=== PATIENT | male | born 1985 | race Caucasian/White ===

== ENCOUNTER 2020-03-19 22:53 | Inpatient (IN) | payer SELFPAY ==
[~2020-03-19] VITALS: Ht 177.8 cm; Wt 104.3 kg
[2020-03-19 23:26] LABS: BASOPHIL % 0 % (0-2); PLATELET COUNT 126 x10^3mcL (130-400)
[2020-03-19 23:43] LABS: CALCIUM 8.4 mg/dL (8.5-10.1); CHLORIDE SERUM 94 mmol/L (98-107); CREATININE SERUM 1.2 mg/dL (0.7-1.3); GFR1 > 60 mL/min; GLUCOSE SERUM 118 mg/dL (74-106); POTASSIUM SERUM 3.1 mmol/L (3.5-5.1); SODIUM SERUM 131 mmol/L (136-145)
[2020-03-19 23:48] LABS: ALBUMIN 3.3 g/dL (3.4-5.0); ALKALINE PHOSPHATASE 67 U/L (46-116); ALT/SGPT 82 U/L (16-63); AST/SGOT 68 U/L (15-37); BILIRUBIN TOTAL 0.8 mg/dL (0.20-1.00); C REACTIVE PROTEIN 32.3 mg/dL (<=0.9); LACTIC DEHYDROGENASE (LDH) 558 U/L (100-190); TOTAL PROTEIN, SERUM 7.6 g/dL (6.4-8.2)
[2020-03-20] VITALS (7 sets, daily range): BP systolic 114–127; BP diastolic 69–78
[2020-03-20 01:25] LABS: UA SPECIFIC GRAVITY 1.025 (1.005-1.035); urine erythrocyte 3+ (NEGATIVE)
[2020-03-20 01:33] LABS: microscopic required? YES
[2020-03-20 01:37] LABS: AMPHETAMINE QUAL UR NONE DETECTED (See below)
[2020-03-20 04:06] LABS: CHOLESTEROL/HDL RATIO 3.2
[2020-03-20 08:31] LABS: BASOPHIL % 0.1 % (0-2); PLATELET COUNT 144 x10^3mcL (130-400); RED CELL DISTRIBUTION WIDTH 12.1 % (11.5-14.5)
[2020-03-20 09:12] LABS: CALCIUM 8.9 mg/dL (8.5-10.1); CARBON DIOXIDE 31.7 mmol/L (21-32); CHLORIDE SERUM 97 mmol/L (98-107); CREATININE SERUM 1.1 mg/dL (0.7-1.3); GFR1 > 60 mL/min; GLUCOSE SERUM 100 mg/dL (74-106); POTASSIUM SERUM 3.7 mmol/L (3.5-5.1); SODIUM SERUM 135 mmol/L (136-145)
[2020-03-21 06:05] VITALS: BP 126/74
[2020-03-21 06:33] LABS: PLATELET COUNT 131 x10^3mcL (130-400); RED CELL DISTRIBUTION WIDTH 12.2 % (11.5-14.5)
[2020-03-21 06:49] LABS: BASOPHIL % 0 % (0-2)
[2020-03-21 07:02] LABS: ALKALINE PHOSPHATASE 58 U/L (46-116); ALT/SGPT 75 U/L (16-63); AST/SGOT 64 U/L (15-37); BILIRUBIN TOTAL 0.5 mg/dL (0.20-1.00); CALCIUM 8.5 mg/dL (8.5-10.1); CARBON DIOXIDE 32.3 mmol/L (21-32); CHLORIDE SERUM 98 mmol/L (98-107); CREATININE SERUM 1.1 mg/dL (0.7-1.3); GFR1 > 60 mL/min; GLUCOSE SERUM 117 mg/dL (74-106); MAGNESIUM 2.9 mg/dL (1.8-2.4); PHOSPHOROUS 3.3 mg/dL (2.5-4.9); POTASSIUM SERUM 3.9 mmol/L (3.5-5.1); SODIUM SERUM 135 mmol/L (136-145); TOTAL PROTEIN, SERUM 7.1 g/dL (6.4-8.2)
[2020-03-21 07:13] LABS: ALBUMIN 2.8 g/dL (3.4-5.0); C REACTIVE PROTEIN 17.4 mg/dL (<=0.9)
[2020-03-21 08:41] VITALS: BP 113/78
[2020-03-21 12:30] VITALS: BP 108/68
[2020-03-21 16:30] VITALS: BP 125/75
[2020-03-21 20:48] VITALS: BP 123/71
[2020-03-22 05:50] VITALS: BP 105/61
[2020-03-22 06:46] LABS: BASOPHIL % 0.1 % (0-2); PLATELET COUNT 147 x10^3mcL (130-400)
[2020-03-22 06:50] LABS: ALKALINE PHOSPHATASE 65 U/L (46-116); ALT/SGPT 98 U/L (16-63); AST/SGOT 81 U/L (15-37); BILIRUBIN TOTAL 0.46 mg/dL (0.20-1.00); C REACTIVE PROTEIN 8.5 mg/dL (<=0.9); CALCIUM 8.3 mg/dL (8.5-10.1); CHLORIDE SERUM 96 mmol/L (98-107); CREATININE SERUM 1.1 mg/dL (0.7-1.3); GFR1 > 60 mL/min; GLUCOSE SERUM 125 mg/dL (74-106); PHOSPHOROUS 4.1 mg/dL (2.5-4.9); SODIUM SERUM 133 mmol/L (136-145); TOTAL PROTEIN, SERUM 6.7 g/dL (6.4-8.2)
[2020-03-22 07:03] LABS: ALBUMIN 2.6 g/dL (3.4-5.0)
[2020-03-22 08:28] VITALS: BP 113/71
[2020-03-22 13:10] VITALS: BP 114/64
[2020-03-22 16:11] VITALS: BP 112/70
[2020-03-22 19:30] VITALS: BP 118/73
[2020-03-23 06:07] VITALS: BP 120/71
[2020-03-23 07:08] LABS: BASOPHIL % 0 % (0-2); PLATELET COUNT 166 x10^3mcL (130-400); RED CELL DISTRIBUTION WIDTH 12.2 % (11.5-14.5)
[2020-03-23 07:13] LABS: ALKALINE PHOSPHATASE 60 U/L (46-116); ALT/SGPT 132 U/L (16-63); AST/SGOT 64 U/L (15-37); BILIRUBIN TOTAL 0.4 mg/dL (0.20-1.00); C REACTIVE PROTEIN 3.6 mg/dL (<=0.9); CALCIUM 8.1 mg/dL (8.5-10.1); CARBON DIOXIDE 33.6 mmol/L (21-32); CHLORIDE SERUM 98 mmol/L (98-107); CREATININE SERUM 0.8 mg/dL (0.7-1.3); GFR1 > 60 mL/min; GLUCOSE SERUM 109 mg/dL (74-106); MAGNESIUM 2.7 mg/dL (1.8-2.4); PHOSPHOROUS 3.4 mg/dL (2.5-4.9); POTASSIUM SERUM 3.6 mmol/L (3.5-5.1); SODIUM SERUM 135 mmol/L (136-145); TOTAL PROTEIN, SERUM 6.5 g/dL (6.4-8.2)
[2020-03-23 07:15] LABS: ALBUMIN 2.6 g/dL (3.4-5.0)
[2020-03-23 09:18] VITALS: BP 119/76
[2020-03-23 12:48] VITALS: BP 113/70
[2020-03-23 17:02] VITALS: BP 128/81
[2020-03-23 19:10] VITALS: BP 106/71
[2020-03-24 06:26] VITALS: BP 121/80
[2020-03-24 07:38] LABS: BASOPHIL % 0.1 % (0-2); PLATELET COUNT 188 x10^3mcL (130-400); RED CELL DISTRIBUTION WIDTH 12.2 % (11.5-14.5)
[2020-03-24 07:52] LABS: ALKALINE PHOSPHATASE 62 U/L (46-116); ALT/SGPT 116 U/L (16-63); AST/SGOT 37 U/L (15-37); BILIRUBIN TOTAL 0.47 mg/dL (0.20-1.00); C REACTIVE PROTEIN 5.6 mg/dL (<=0.9); CALCIUM 8.3 mg/dL (8.5-10.1); CARBON DIOXIDE 31.6 mmol/L (21-32); CHLORIDE SERUM 98 mmol/L (98-107); CREATININE SERUM 0.9 mg/dL (0.7-1.3); GFR1 > 60 mL/min; GLUCOSE SERUM 99 mg/dL (74-106); MAGNESIUM 2.4 mg/dL (1.8-2.4); POTASSIUM SERUM 3.8 mmol/L (3.5-5.1); SODIUM SERUM 135 mmol/L (136-145); TOTAL PROTEIN, SERUM 6.6 g/dL (6.4-8.2)
[2020-03-24 08:01] LABS: ALBUMIN 2.6 g/dL (3.4-5.0)
[2020-03-24 09:00] VITALS: BP 121/77
[2020-03-24 12:50] VITALS: BP 116/69
[2020-03-24 16:45] VITALS: BP 117/73
[2020-03-25 00:14] VITALS: BP 108/66
[2020-03-25 04:00] VITALS: BP 107/52
[2020-03-25 07:20] LABS: ALKALINE PHOSPHATASE 77 U/L (46-116); ALT/SGPT 135 U/L (16-63); AST/SGOT 36 U/L (15-37); BILIRUBIN TOTAL 0.41 mg/dL (0.20-1.00); C REACTIVE PROTEIN 11.1 mg/dL (<=0.9); CALCIUM 8.7 mg/dL (8.5-10.1); CARBON DIOXIDE 30.8 mmol/L (21-32); CHLORIDE SERUM 99 mmol/L (98-107); CREATININE SERUM 0.9 mg/dL (0.7-1.3); GFR1 > 60 mL/min; GLUCOSE SERUM 105 mg/dL (74-106); MAGNESIUM 2.6 mg/dL (1.8-2.4); PHOSPHOROUS 3.5 mg/dL (2.5-4.9); POTASSIUM SERUM 4.1 mmol/L (3.5-5.1); SODIUM SERUM 135 mmol/L (136-145); TOTAL PROTEIN, SERUM 6.7 g/dL (6.4-8.2)
[2020-03-25 07:21] LABS: BASOPHIL % 0.2 % (0-2); PLATELET COUNT 211 x10^3mcL (130-400); RED CELL DISTRIBUTION WIDTH 12.2 % (11.5-14.5)
[2020-03-25 07:30] LABS: ALBUMIN 2.5 g/dL (3.4-5.0)
[2020-03-25 09:04] VITALS: BP 107/58
[2020-03-25 13:18] VITALS: BP 120/65
[2020-03-25 17:05] VITALS: BP 112/81
[2020-03-25 17:37] LABS: BILIRUBIN DIRECT 0.1 mg/dL (0.0-0.2); BILIRUBIN TOTAL 0.4 mg/dL (0.20-1.00); TOTAL PROTEIN, SERUM 6.7 g/dL (6.4-8.2)
[2020-03-25 17:39] LABS: ALBUMIN 2.6 g/dL (3.4-5.0)
[2020-03-25 22:09] VITALS: BP 120/68
[2020-03-26 05:56] VITALS: BP 96/59
[2020-03-26 07:57] LABS: BASOPHIL % 0.1 % (0-2); PLATELET COUNT 257 x10^3mcL (130-400)
[2020-03-26 08:04] LABS: C REACTIVE PROTEIN 5.3 mg/dL (<=0.9); CALCIUM 8.7 mg/dL (8.5-10.1); CARBON DIOXIDE 32.4 mmol/L (21-32); CHLORIDE SERUM 98 mmol/L (98-107); CREATININE SERUM 0.8 mg/dL (0.7-1.3); GFR1 > 60 mL/min; GLUCOSE SERUM 94 mg/dL (74-106); MAGNESIUM 2.4 mg/dL (1.8-2.4); PHOSPHOROUS 3.9 mg/dL (2.5-4.9); SODIUM SERUM 134 mmol/L (136-145)
[2020-03-26 08:28] LABS: BILIRUBIN DIRECT 0.1 mg/dL (0.0-0.2); BILIRUBIN TOTAL 0.4 mg/dL (0.20-1.00)
[2020-03-26 08:29] LABS: ALBUMIN 2.6 g/dL (3.4-5.0); TOTAL PROTEIN, SERUM 6.1 g/dL (6.4-8.2)
[2020-03-26 08:43] VITALS: BP 106/71
[2020-03-26 14:10] VITALS: BP 115/78
[2020-03-26 17:40] VITALS: BP 115/70
[2020-03-26 21:37] VITALS: BP 107/71
[2020-03-27 05:30] VITALS: BP 116/83
[2020-03-27 07:42] LABS: BASOPHIL % 0.4 % (0-2); PLATELET COUNT 285 x10^3mcL (130-400); RED CELL DISTRIBUTION WIDTH 12.3 % (11.5-14.5)
[2020-03-27 08:02] LABS: C REACTIVE PROTEIN 2.3 mg/dL (<=0.9); CALCIUM 8.7 mg/dL (8.5-10.1); CHLORIDE SERUM 99 mmol/L (98-107); CREATININE SERUM 0.9 mg/dL (0.7-1.3); GFR1 > 60 mL/min; GLUCOSE SERUM 98 mg/dL (74-106); MAGNESIUM 2.4 mg/dL (1.8-2.4); PHOSPHOROUS 3.7 mg/dL (2.5-4.9); POTASSIUM SERUM 4.2 mmol/L (3.5-5.1); SODIUM SERUM 135 mmol/L (136-145)
[2020-03-27 09:06] VITALS: BP 106/67
[2020-03-27 12:00] VITALS: BP 111/77
[2020-03-27 14:26] VITALS: Ht 177.8 cm; Wt 104.3 kg
[2020-03-27 17:00] VITALS: BP 118/63
[2020-03-27 20:14] VITALS: BP 107/65
[2020-03-28 05:21] VITALS: BP 101/59
[2020-03-28 08:24] VITALS: BP 112/68
[2020-03-28 13:17] VITALS: BP 128/76
[2020-03-28 17:05] VITALS: BP 108/69
[2020-03-28 19:42] VITALS: BP 117/79
[2020-03-29 05:06] VITALS: BP 107/62
[2020-03-29 07:23] LABS: BASOPHIL % 0.3 % (0-2); PLATELET COUNT 283 x10^3mcL (130-400); RED CELL DISTRIBUTION WIDTH 12.8 % (11.5-14.5)
[2020-03-29 07:42] LABS: C REACTIVE PROTEIN 0.8 mg/dL (<=0.9); CALCIUM 8.4 mg/dL (8.5-10.1); CARBON DIOXIDE 27.6 mmol/L (21-32); CHLORIDE SERUM 100 mmol/L (98-107); GFR1 > 60 mL/min; GLUCOSE SERUM 89 mg/dL (74-106); MAGNESIUM 2.5 mg/dL (1.8-2.4); PHOSPHOROUS 3.8 mg/dL (2.5-4.9); POTASSIUM SERUM 3.9 mmol/L (3.5-5.1); SODIUM SERUM 135 mmol/L (136-145)
[2020-03-29 08:12] VITALS: BP 110/76
[2020-03-29] MEDS ORDERED: ELIQUIS2.5 MG PO (12:03)
[2020-03-29 12:56] VITALS: BP 119/68
[2020-03-29 13:19] VITALS: BP 119/68
== END 2020-03-29 15:09 | disposition home or self-care (01) | DRG 871 ==
LOC: ED 22:53 → DU 03-20 00:20
PROVIDERS: Emergency Medicine; Internal Medicine; Student in an Organized Health Care Education/Training Program; ADMIT Family Medicine; ATTEND Family Medicine
PROC: XW033E5 Introduction of Remdesivir Anti-infective into Peripheral Vein, Percutaneous Approach, New Technology Group 5 (ICD-10-PCS; principal; 2020-03-22)
PROC: XW033E5 Introduction of Remdesivir Anti-infective into Peripheral Vein, Percutaneous Approach, New Technology Group 5 (ICD-10-PCS; 2020-03-23)
DX: A41.89 Other specified sepsis (principal); U07.1 COVID-19; J12.89 Other viral pneumonia; J96.01 Acute respiratory failure with hypoxia; E87.1 Hypo-osmolality and hyponatremia; R74.0 Nonspecific elevation of levels of transaminase and lactic acid dehydrogenase [LDH]; E87.6 Hypokalemia
CPT/HCPCS: 36600; 83880; 87804; G0378; J0456; J0696; J1100; J1644; J1650; J2405; J2543; J3535; J7050; Q0092; U0003-CS